=== PATIENT | female | born 1995 | race Caucasian/White ===

== ENCOUNTER 2017-03-05 03:11 | Emergency (ER) | payer OTHER ==
[~2017-03-05] VITALS: Ht 152.4 cm; Wt 58.1 kg
[2017-03-05 03:18] VITALS: Ht 152.4 cm; Wt 58.1 kg
[2017-03-05] MEDS ORDERED: LACT3000 PO (03:25)
[2017-03-05] MEDS ORDERED: METRONIDAZOLE 500 MG TAB PO STA (03:26)
[2017-03-05] MEDS ORDERED: CEFTRIAXONE SOD 350MG/ML 1 GM VIAL IM STA (03:26)
[2017-03-05] MEDS ORDERED: AZITHROMYCIN 250 MG TAB PO STA (03:26)
[2017-03-05] MEDS ORDERED: MULT-506 PO (03:26)
[2017-03-05] MEDS ORDERED: SODIUM CHLORIDE 0.9% 1000ML 1,000 ML IV STA (03:26)
[2017-03-05] MEDS ORDERED: ONDANSETRON INJ 2 MG/ML 2 ML VIAL IV STA (03:26)
[2017-03-05 03:38] LABS: BASO % 0.4 %; BASO ABS # 0.03 K/uL (0-0.2); COMPLETE YES; EOS % 2.6 %; HEMATOCRIT 43.4 % (37-47); IG% 0.1 %; LYMPH % 29.2 %; MEAN CELL VOLUME 84.3 fL (80-100); MEAN CORPUSCULAR HEMOGLOBIN 31.1 pg (25-34); MEAN CORPUSCULAR HGB CONC 36.9 g/dl (32-36); MEAN PLATELET VOLUME 9.4 fL (7.4-10.4); MONO % 4.5 %; NEUT % 63.2 %; PLATELET COUNT 308 K/uL (130-400); RED BLOOD COUNT 5.15 M/uL (4.2-5.4); WHITE BLOOD COUNT 6.84 K/uL (4.8-10.8)
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
[2017-03-05 03:58] LABS: INR 0.9 (0.9-1.1)
[2017-03-05 04:03] LABS: BUN/CREATININE RATIO 10.6 (10-20); CALCIUM 9.5 mg/dl (8.5-10.1); CREATININE 0.89 mg/dl (0.60-1.20); POTASSIUM 3.1 mmol/L (3.5-5.1)
[2017-03-05 04:06] LABS: ALB/GLOB RATIO 1.2 (0.9-2)
[2017-03-05 11:33] VITALS: TEMP 37.2
[2017-03-05 11:40] VITALS: O2SAT 98
[2017-03-05] MEDS ORDERED: IBUPROFEN 600 MG TAB PO STA (13:23)
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
[2017-03-05] MEDS ORDERED: CEFTRIAXONE SOD 350MG/ML 1 GM VIAL IM ONE (13:31)
[2017-03-05] MEDS ORDERED: AZITHROMYCIN 250 MG TAB ONE (13:32)
--- NOTE | 2017-03-05 14:18 | DIAGNOSTIC IMAGING REPORT ---
RIGHT FIRST TOE 3 VIEWS HISTORY: great toe pain COMPARISON: None. FINDINGS: There is no fracture or dislocation. Soft tissues are unremarkable. No radiopaque foreign bodies. IMPRESSION: No fractures. Electronically signed by: Guru Ospina M.D. 03/05/2017 2:17 PM Dictated Date/Time: 03/05/2017 2:14 PM
[2017-03-05 14:55] VITALS: BP 109/72; PULSE 100; O2SAT 99
== END 2017-03-05 14:56 | disposition home or self-care (01) ==
LOC: EDBD 03:11 → C.EDB 03:17
DX: F10.129 Alcohol abuse with intoxication, unspecified (principal); T74.21XA Adult sexual abuse, confirmed, initial encounter; M79.674 Pain in right toe(s); F41.9 Anxiety disorder, unspecified